=== PATIENT | female | born 1990 | race Hispanic/Latino ===

== ENCOUNTER → 2018-12-19 | Outpatient (REF) | payer OTHER ==
[~2018-12-19] MED LIST: COLA100C5 PO; IBUP60TA PO; MACR100C43 PO; MAPA500T2 PO; NUPE1OIN2 TOP; VITAPRTA PO
== END ==
LOC: M SFHCLERA 20:45
PROVIDERS: ATTEND Physician Assistant
DX: N39.0 Urinary tract infection, site not specified (principal)

== ENCOUNTER 2024-07-18 06:19 | Day surgery (SDC) | payer OTHER ==
[~2024-07-18] VITALS: Ht 154.9 cm; Wt 97.7 kg
[~2024-07-18 06:19] MED LIST changes: +IBUP600T42 PO; -IBUP60TA PO; +PRENTAB53 PO
[2024-07-18 06:41] LABS: HEMATOCRIT 37.5 % (36.0-47.0); HEMOGLOBIN 11.7 g/dl (12.0-15.5)
[2024-07-18] MEDS ORDERED: LR 1,000 ML IV SCH (06:50)
[2024-07-18] MEDS ORDERED: ACETAMINOPHEN 1000MG 100ML IV BAG As Ordered ONE (06:59)
[2024-07-18] MEDS ORDERED: propofoL 200 MG/20 ML VIAL As Ordered ONE (07:00)
[2024-07-18] MEDS ORDERED: LIDOCAINE 2% 100MG/5ML SDV (FOR ANES.) As Ordered ONE (07:00)
[2024-07-18] MEDS ORDERED: ONDANSETRON 4MG 2ML VIAL As Ordered ONE (07:00)
[2024-07-18] MEDS ORDERED: SUGAMMADEX SODIUM 500 MG/5 ML VIAL (BRIDION) As Ordered ONE (07:00)
[2024-07-18] MEDS ORDERED: ROCURONIUM BROMIDE 50MG/5ML VIAL As Ordered ONE (07:00)
[2024-07-18] MEDS ORDERED: MIDAZOLAM INJ 2MG/2ML VIAL As Ordered ONE (07:10)
[2024-07-18] MEDS ORDERED: fentaNYL 100 MCG/2 ML INJECTION As Ordered ONE (07:10)
[2024-07-18] MEDS ORDERED: HYDROmorphone HCL 2MG/ML 1ML VIAL As Ordered ONE (07:47)
[2024-07-18] MEDS ORDERED: oxyCODONE 5MG TAB PO PRN ×2 (08:20→10:20)
[2024-07-18] MEDS ORDERED: MORPHINE 2 MG/ML 1ML VIAL IV PRN (08:20)
[2024-07-18] MEDS ORDERED: fentaNYL 100 MCG/2 ML INJECTION IV PRN (08:20)
[2024-07-18] MEDS: ONDANSETRON 4MG 2ML VIAL IV PRN (09:15)
[2024-07-18] MEDS: METOCLOPRAMIDE INJ 10MG/2ML VIAL IV ONE (10:30)
[2024-07-18 11:20] VITALS: BP 120/70; TEMP 98; O2SAT 98
== END 2024-07-18 11:20 | disposition home or self-care (01) ==
LOC: M SDC 06:19
PROVIDERS: ATTEND Obstetrics & Gynecology
DX: Z30.2 Encounter for sterilization (principal)
CPT/HCPCS: 36415; 58661; 81025; 85014; 85018; 88302; J0131; J0665; J1100; J1171; J2250; J2405; J2765; J3010